=== PATIENT | male | born 1960 | race Caucasian/White ===

== ENCOUNTER → 2019-05-16 | Outpatient (REF) | payer BC ==
[~2019-05-16] MED LIST: ASPI325T OR; ASPI81TA83 OR; DRISDOL PO; KEPPRA XR PO; LEVETIRACETAM PO; LOPR50TA OR; TEGR1TAB2 OR
[2019-05-16 13:41] LABS: BASO % 0.9 % (0.0-1.0); EOS % 0.3 % (0.0-3.0); HEMATOCRIT 40.4 % (42.0-52.0); HEMOGLOBIN 14.1 g/dl (13.5-17.5); LYMPH # 1.4 10^3/uL (1.5-4.5); LYMPH % 40.1 % (24.0-44.0); MEAN CORPUSCULAR HEMOGLOBIN 32.3 pg (27.0-33.0); MEAN CORPUSCULAR HGB CONC 34.9 g/dl (32.0-36.5); MEAN CORPUSCULAR VOLUME 92.4 fl (80.0-96.0); MONO # 0.4 10^3/uL (0.0-0.8); MONO % 10.4 % (0.0-5.0); NEUTROPHILS # 1.6 10^3/uL (1.8-7.7); PLATELET COUNT, AUTOMATED 174 10^3/uL (150-450); RED BLOOD COUNT 4.37 10^6/uL (4.30-6.10); WHITE BLOOD COUNT 3.4 10^3/uL (4.0-10.0)
[2019-05-16 14:20] LABS: ALBUMIN 3.8 GM/DL (3.2-5.2); ALT/SGPT 23 U/L (12-78); BILIRUBIN,TOTAL 0.3 MG/DL (0.2-1.0); BLOOD UREA NITROGEN 9 MG/DL (7-18); CALCIUM LEVEL 8.4 MG/DL (8.5-10.1); CARBAMAZEPINE (TEGRETOL) LEVEL 12.8 UG/ML (4.0-10.0); CARBON DIOXIDE LEVEL 25 MEQ/L (21-32); CHLORIDE LEVEL 97 MEQ/L (98-107); CREATININE FOR GFR 0.68 MG/DL (0.70-1.30); GLOMERULAR FILTRATION RATE > 60.0 (>56); GLUCOSE, FASTING 94 MG/DL (70-100); POTASSIUM SERUM 4.2 MEQ/L (3.5-5.1); SODIUM LEVEL 132 MEQ/L (136-145); TOTAL PROTEIN 6.6 GM/DL (6.4-8.2)
== END ==
LOC: M LABNEURO 08:32
PROVIDERS: ATTEND Psychiatry & Neurology Neurology
DX: G40.909 Epilepsy, unspecified, not intractable, without status epilepticus (principal)

== ENCOUNTER → 2019-05-17 | Outpatient (CLI) | payer BC ==
[~2019-05-17] MED LIST changes: +ISOVUE-370 76% 100ML VIAL (Q9967) As Ordered ONE
--- NOTE | 2019-05-17 10:16 | REP ---
CT ANGIOGRAPHY OF THE NECK WITH IV CONTRAST: HISTORY: Cerebral aneurysm. History of aneurysm. Comparison brain CT study November 05, 2011. The patient has apparently undergone previous aneurysm clipping and coiling. CT CONTRAST DOSE: 100 mL of intravenous Isovue 370. CT TECHNIQUE: Helical scanning is acquired. 2 mm high resolution axial images are reformatted. In addition maximal intensity projection, and complex plane multiplanar re-formation images are generated. Surface rendered color 3D images are generated. CT ANGIOGRAPHIC FINDINGS: There are mild atherosclerotic calcifications affecting the aortic arch. Great vessel origins show some mild calcification as well but no evidence of great vessel stenosis. The vertebral arteries are patent bilaterally. The left vertebral artery is quite small however compared to the right. The vertebral arteries are otherwise unremarkable. The common carotid arteries are widely patent. There is mild vascular calcification in the proximal ICA just beyond its bifurcation on the right and similarly on the left. No ICA stenosis is seen on either side. External carotid arteries are unremarkable. The distal internal carotid arteries are unremarkable bilaterally. IMPRESSION: Minimal vascular calcification. No significant stenosis. A symmetric vertebral arteries, right dominant. Otherwise negative. Electronically Signed by Josiah Baez MD 05/17/2019 10:20 A
--- NOTE | 2019-05-17 11:20 | REP ---
CT ANGIOGRAPHY THE BRAIN WITH IV CONTRAST: HISTORY: History of cerebral aneurysm treated with vascular clipping and coiling. Comparison head CT study November 05, 2011. No comparison cerebral angiography. CT CONTRAST DOSE: 100 mL of intravenous Isovue 370. CT TECHNIQUE: Helical scanning is acquired. 2 mm axial images are reformatted. Maximal intensity projection and multiplanar re-formation images are generated along with 3D surface rendered color imaging which is viewed rotational. CT ANGIOGRAPHIC FINDINGS: The distal vertebral arteries are asymmetric, right dominant, but bilaterally patent. There is spray artifact emanating from the coil and clips hardware at the anterior aspect of the jena of Chopra which degrades image quality. The posterior cerebral arteries are patent bilaterally. I cannot exclude a short segment stenosis of the P1 segment on the right. This may be due to metallic spray artifact however. There is no evidence of a posterior circulation aneurysm. The coils appear to be at the level of the anterior communicating artery. This obscures the anterior aspect of the jena of Chopra. The anterior cerebral arteries are patent peripheral to this bilaterally. The middle cerebral arteries are patent bilaterally. There is a clip along the lateral aspect of the cavernous sinus on the left suggesting clipping of an ICA aneurysm. The middle cerebral arteries are intact bilaterally. No murray aneurysm is visualized. Dural sinuses appear intact. IMPRESSION: Status post vascular clip placement on the left side of the jena of Chopra and coil metallic material at the anterior aspect of the jena of Chopra. This produces spray artifact degrades image quality. No patent aneurysm is seen. Electronically Signed by Josiah Baez MD 05/17/2019 03:42 P
== END ==
LOC: M RAD 08:47
PROVIDERS: ATTEND Psychiatry & Neurology Neurology
DX: I60.12 Nontraumatic subarachnoid hemorrhage from left middle cerebral artery (principal); G40.109 Localization-related (focal) (partial) symptomatic epilepsy and epileptic syndromes with simple partial seizures, not intractable, without status epilepticus; I67.1 Cerebral aneurysm, nonruptured
CPT/HCPCS: 70496; 70498; Q9967

== ENCOUNTER → 2020-03-25 | Outpatient (REF) | payer BC ==
[~2020-03-25] MED LIST changes: -ISOVUE-370 76% 100ML VIAL (Q9967) As Ordered ONE
[2020-03-25 12:30] LABS: BASO % 0.6 % (0.0-1.0); HEMATOCRIT 42.6 % (42.0-52.0); LYMPH # 1.7 10^3/uL (1.5-5.0); MEAN CORPUSCULAR HEMOGLOBIN 32.3 pg (27.0-33.0); MEAN CORPUSCULAR HGB CONC 35.2 g/dl (32.0-36.5); MEAN CORPUSCULAR VOLUME 91.6 fl (80.0-96.0); MONO # 0.5 10^3/uL (0.0-0.8); MONO % 6.6 % (0.0-5.0); NEUTROPHILS # 4.7 10^3/uL (1.5-8.5); NEUTROPHILS % 67.5 % (36.0-66.0); PLATELET COUNT, AUTOMATED 190 10^3/uL (150-450); RED BLOOD COUNT 4.65 10^6/uL (4.30-6.10); WHITE BLOOD COUNT 6.9 10^3/uL (4.0-10.0)
[2020-03-25 13:04] LABS: ALBUMIN 4.3 GM/DL (3.2-5.2); ALT/SGPT 31 U/L (12-78); BILIRUBIN,TOTAL 0.5 MG/DL (0.2-1.0); BLOOD UREA NITROGEN 14 MG/DL (7-18); CALCIUM LEVEL 8.8 MG/DL (8.5-10.1); CARBAMAZEPINE (TEGRETOL) LEVEL 15.1 UG/ML (4.0-10.0); CARBON DIOXIDE LEVEL 27 MEQ/L (21-32); CHLORIDE LEVEL 102 MEQ/L (98-107); GLOMERULAR FILTRATION RATE > 60.0 (>56); GLUCOSE, FASTING 80 MG/DL (70-100); POTASSIUM SERUM 4.4 MEQ/L (3.5-5.1); SODIUM LEVEL 134 MEQ/L (136-145); TOTAL PROTEIN 7.1 GM/DL (6.4-8.2)
== END ==
LOC: M LABDRAWC 11:23
PROVIDERS: ATTEND Psychiatry & Neurology Neurology
DX: G40.909 Epilepsy, unspecified, not intractable, without status epilepticus (principal)

== ENCOUNTER → 2020-03-25 | Outpatient (REF) | payer BC ==
[2020-03-25 13:02] LABS: CHOLESTEROL RISK RATIO 3.722 (<5)
== END ==
LOC: M LABDRAWC 11:25
PROVIDERS: ATTEND Nurse Practitioner Family
DX: E78.49 Other hyperlipidemia (principal)

== ENCOUNTER → 2021-02-05 | Outpatient (REF) | payer OTHER ==
[2021-02-05 12:32] LABS: ALBUMIN 3.9 GM/DL (3.2-5.2); ALT/SGPT 29 U/L (12-78); BILIRUBIN,TOTAL 0.2 MG/DL (0.2-1.0); BLOOD UREA NITROGEN 6 MG/DL (7-18); CALCIUM LEVEL 8.8 MG/DL (8.8-10.2); CARBON DIOXIDE LEVEL 29 MEQ/L (21-32); CHLORIDE LEVEL 102 MEQ/L (98-107); CREATININE FOR GFR 0.64 MG/DL (0.70-1.30); GLOMERULAR FILTRATION RATE > 60.0 (>49); GLUCOSE, FASTING 91 MG/DL (70-100); POTASSIUM SERUM 4.7 MEQ/L (3.5-5.1); SODIUM LEVEL 136 MEQ/L (136-145)
[2021-02-05 12:39] LABS: CHOLESTEROL RISK RATIO 3.321 (<5)
== END ==
LOC: M LABDRAWC 11:35
PROVIDERS: ATTEND Nurse Practitioner Family
DX: E78.5 Hyperlipidemia, unspecified (principal); I11.9 Hypertensive heart disease without heart failure

== ENCOUNTER → 2021-02-05 | Outpatient (REF) | payer OTHER ==
[2021-02-05 12:00] LABS: BASO # 0.1 10^3/uL (0.0-0.2); BASO % 1.2 % (0.0-1.0); EOS % 0.9 % (0.0-3.0); HEMATOCRIT 43.5 % (42.0-52.0); HEMOGLOBIN 14.9 g/dl (13.5-17.5); LYMPH % 47.1 % (24.0-44.0); MEAN CORPUSCULAR HEMOGLOBIN 31.5 pg (27.0-33.0); MEAN CORPUSCULAR HGB CONC 34.3 g/dl (32.0-36.5); MONO # 0.3 10^3/uL (0.0-0.8); MONO % 7.4 % (2.0-8.0); NEUTROPHILS # 1.9 10^3/uL (1.5-8.5); NEUTROPHILS % 43.4 % (36.0-66.0); PLATELET COUNT, AUTOMATED 188 10^3/uL (150-450); RED BLOOD COUNT 4.73 10^6/uL (4.30-6.10); WHITE BLOOD COUNT 4.3 10^3/uL (4.0-10.0)
== END ==
LOC: M LABDRAWC 11:43
PROVIDERS: ATTEND Psychiatry & Neurology Neurology
DX: R56.9 Unspecified convulsions (principal)

== ENCOUNTER → 2021-02-05 | Outpatient (REF) | payer OTHER | LOC: M SFHCCLAY 07:13 | PROVIDERS: ATTEND Family Medicine | DX: E78.5 Hyperlipidemia, unspecified (principal); I11.9 Hypertensive heart disease without heart failure; Z53.9 Procedure and treatment not carried out, unspecified reason ==

== ENCOUNTER → 2021-05-05 | Outpatient (REF) | payer OTHER ==
[2021-05-05 18:16] LABS: BLOOD UREA NITROGEN 12 MG/DL (7-18); CALCIUM LEVEL 8.5 MG/DL (8.8-10.2); CARBON DIOXIDE LEVEL 29 MEQ/L (21-32); CHLORIDE LEVEL 103 MEQ/L (98-107); CHOLESTEROL LEVEL 186 MG/DL (<200); CHOLESTEROL RISK RATIO 2.861 (<5); CREATININE FOR GFR 0.75 MG/DL (0.70-1.30); GLOMERULAR FILTRATION RATE > 60.0 (>49); GLUCOSE, FASTING 84 MG/DL (70-100); HDL CHOLESTEROL 65 MG/DL (>40); LDL CHOLESTEROL 106 MG/DL (<100); NON-HDL-C 121 MG/DL; POTASSIUM SERUM 5.3 MEQ/L (3.5-5.1); SODIUM LEVEL 136 MEQ/L (136-145); TRIGLYCERIDES LEVEL 76 MG/DL (<150)
== END ==
LOC: M SFHCCLAY 13:23
PROVIDERS: ATTEND Family Medicine
DX: Z00.00 Encounter for general adult medical examination without abnormal findings (principal); E78.5 Hyperlipidemia, unspecified; I11.9 Hypertensive heart disease without heart failure; Z12.5 Encounter for screening for malignant neoplasm of prostate

== ENCOUNTER → 2022-05-05 | Outpatient (REF) | payer OTHER ==
[2022-05-05 19:39] LABS: CHOLESTEROL RISK RATIO 2.192 (<5)
== END ==
LOC: M LABDRAWC 18:41
PROVIDERS: ATTEND Nurse Practitioner Family
DX: E78.49 Other hyperlipidemia (principal)